=== PATIENT | male | born 1980 | race Caucasian/White ===

== ENCOUNTER → 2024-05-06 15:56 | Emergency (ER) | payer BC, SELFPAY ==
[2024-05-06 16:07] VITALS: BP 161/105
--- NOTE | 2024-05-06 16:45 | ED.SKININJ ---
HPI-Injury
General
Chief Complaint: Skin Surface Trauma
Source: patient
Exam Limitations: none
Time Seen by Provider: 05/06/24 16:34
Nursing documentation reviewed up to this point in time: agreed with
History of Present Illness-Injury
Initial Injury comments:
43-year-old male at home within the past hour accidentally sliced the right middle finger tuft with his pocket knife as he was folding it while putting it into his pocket. He is unsure of his last tetanus immunization.
Past History
Past History
ED Past Medical History: None
ED Past Surgical History: None
Social History
Tobacco: Non-smoker
Alcohol: Occasional
Drug: None
Personal:
Living: with family
Employment: Employed
Family History
Family History: Hypertension
Review of Systems
Review of Systems
Allergies reviewed?: Yes
All Other Systems: ROS reviewed and negative except as documented in HPI and ROS
Skin: Reports other (Cut right middle finger)
Phy Exam
Physical Exam
Physical Exam:
PHYSICAL EXAMINATION:
General: no apparent distress, not acutely ill
Neuro: alert and oriented.
Psychiatric: well kept. interactive and cooperative
Musculoskeletal: Moves with ease
Skin: Warm, pink. There is a 2 cm long, 5 mm wide, 1-2 mm avulsion of the skin on the radial aspect of the right middle finger. Slow venous oozing.
Course
Orders/Labs/Results
Orders:
Orders
05/06/24 16:45
Lidocaine/Epinephrine/Tetracai [Let Topical Anesthetic Gel] 3 ml .ROUTE .STK-MED ONE
Lidocaine/Epinephrine/Tetracai [Let Topical Anesthetic Gel] 3 ml TOPICAL NOW STA
Tetanus/Diphth/Acelpertussis [Adacel] 0.5 ml IM .ONCE ONE
Vital Signs
Initial and Last Documented VS:
Initial Vital Signs
Temp Pulse Resp BP Pulse Ox
97.5 F 65 18 161/105 96
05/06/24 16:07 05/06/24 16:07 05/06/24 16:07 05/06/24 16:07 05/06/24 16:07
Last Documented Vital Signs
Temp Pulse Resp BP Pulse Ox
97.5 F 86 18 160/65 100
05/06/24 16:07 05/06/24 17:22 05/06/24 16:07 05/06/24 17:22 05/06/24 17:22
MDM/Problems Addressed
MDM/Problems Addressed:
43-year-old male at home within the past hour accidentally sliced the right middle finger tuft with his pocket knife as he was folding it while putting it into his pocket. He is unsure of his last tetanus immunization.
After topical anesthetic applied, wound was cleansed well with soap and water, Gelfoam dressing applied an aluminum finger splint applied for protection
He just found out he had Tdap 2 yrs ago, order cancelled
Pt and aware of BP, will have it rechecked.
*Critical Care Note
Total Time (30-74mins, 75-104mins- exclusive of procedures): Not Applicable
ED Attending Note
-
Portions of this chart may have been created with voice recognition software.� Occasional wrong word or��sound alike� substitutions may have occurred due to the inherent limitations of voice recognition software.
Discharge Plan
Departure
Patient Disposition: Home (Routine Discharge)
Date of Disposition: 05/06/24
Time of Disposition: 17:08
Patient with high blood pressure during this ER visit?: Yes
Condition: Good
Discharge Problem:
Avulsion of skin of finger
Instructions: Wound Care (DC)
Prescriptions:
No Action
Advil
1 tab PO PRN PRN (Reason: 'to thin blood')
Patient Comments:
pt does not know dose
pedi multivit no.19-folic acid [Flintstones Multi-Vit Gummies] 200 MCG tablet,chewable
400 mcg PO HS
Activity Restrictions/Additional Instructions:
As we discussed, leave the dressing on until Wednesday.
You may have to soak it off with water.
Then wash daily with soap and water as usual, apply antibiotic, band aid and use the aluminum fingertip splint as needed for protection
Interventions
Interventions:
*Risk Screen - Suicide Last Done: 05/06/24 17:20
*General Assessment Last Done: 05/06/24 17:20
*Neglect/Abuse Screening Last Done: 05/06/24 17:20
*ED COVID-19 Vaccine History Last Done: 05/06/24 17:20
ED-Skin Assessment Last Done: 05/06/24 16:51
Discharge Date and Time
Print Language: TURKISH
[2024-05-06 17:15] VITALS: BP 175/111
[2024-05-06] MEDS: LET TOPICAL ANESTHETIC GEL 3 ML TOPICAL (17:18)
[2024-05-06 17:22] VITALS: BP 160/65
== END | disposition home or self-care (01) ==
LOC: EMR 15:56
PROVIDERS: EMERGENCY PHYSICIAN Student in an Organized Health Care Education/Training Program; FAMILY PHYSICIAN Family Medicine
DX: S61.212A Laceration without foreign body of right middle finger without damage to nail, initial encounter (principal); W26.0XXA Contact with knife, initial encounter; R03.0 Elevated blood-pressure reading, without diagnosis of hypertension; Z88.1 Allergy status to other antibiotic agents; Z88.2 Allergy status to sulfonamides
CPT/HCPCS: 99283; 29130